=== PATIENT | female | born 1950 | race Caucasian/White ===

== ENCOUNTER 2016-10-06 12:31 | Inpatient (IN) | payer MEDICARE ==
[2016-09-29 10:06] LABS: BASOPHILS 0.5 %; BASOPHILS ABSOLUTE 0.02 10/3/uL (0.0-0.16); EOSINOPHILS 8.7 %; EOSINOPHILS ABSOLUTE 0.37 10/3/uL (0.0-0.53); HEMATOCRIT 41.7 % (36.0-48.0); HEMOGLOBIN 13.5 g/dL (12.0-16.0); IMMATURE GRANULOCYTES 0.2 %; IMMATURE GRANULOCYTES ABSOLUTE 0.01 10/3/uL (0.0-0.11); LYMPHOCYTES 40.2 %; LYMPHOCYTES ABSOLUTE 1.71 10/3/uL (0.67-4.30); MEAN CORPUS HGB CONC 32.4 g/dL (32.0-36.0); MEAN CORPUSCULAR HEMOGLOB 29.8 pg (26.0-34.0); MEAN CORPUSCULAR VOLUME 92.1 fL (80-100); MEAN PLATELET VOLUME 8.9 fL (9.2-13.0); MONOCYTES 8.9 %; MONOCYTES ABSOLUTE 0.38 10/3/uL (0.21-1.20); NEUTROPHILS 41.5 %; NEUTROPHILS ABSOLUTE 1.76 10/3/uL (2.02-8.40); PLATELET COUNT 295 10/3/uL (150-400); RED CELL COUNT 4.53 10/6/uL (4.0-5.6); WHITE BLOOD CELLS 4.3 10/3/uL (4.5-10.5)
[2016-09-29 10:08] LABS: MANUAL DIFF NO %
[2016-09-29 10:12] LABS: INTERNATIONAL NORMAL RATI 1.1 UNITS (-)
[2016-09-29 10:13] LABS: ASCORBIC ACID (UR NOT ORDER) NEG (NEG); BILIRUBIN, URINE NEGATIVE (NEG); KETONE, URINE NEGATIVE (NEG); LEUKOCYTE ESTERASE(NOT OR LARGE (NEG); PARTIAL THROMBO TIME 28.9 SEC (22.5-37.2); WBC (NOT ORDERED) (RFLEX) 12 (0-5)
[2016-09-29 10:26] LABS: A/G RATIO 1.3 (0.7-1.9); ALBUMIN 3.9 G/DL (3.5-5.0); ALKALINE PHOSPHATASE 82 U/L (45-117); BUN (BLOOD UREA NITROGEN) 19 MG/DL (6-23); CALCIUM, SERUM 9.3 MG/DL (8.5-10.4); CHLORIDE, SERUM 108 MMOL/L (96-112); CO2 (CARBON DIOXIDE) 28 MMOL/L (24-34); CREATININE 0.51 MG/DL (0.55-1.02); GFR AFRICAN AMERICAN 118 ML/MIN (>=60); GFR NON AFRICAN AMERICAN 102 ML/MIN (>=60); GLOBULIN 2.9 G/DL (2.5-4.1); GLUCOSE, SERUM 109 MG/DL (60-99); POTASSIUM, SERUM 3.7 MMOL/L (3.5-5.3); SGOT(AST) 22 U/L (5-40); SGPT(ALT) 31 U/L (5-65); SODIUM, SERUM 140 MMOL/L (135-148); TOTAL BILIRUBIN 0.6 MG/DL (0-1.2); TOTAL PROTEIN 6.8 G/DL (6.0-8.5)
--- NOTE | ~2016-10-06 | DS ---
Discharge Summary [facility] [address] [place]. [address] NAME: BABAK RILEY : 52 STATUS : DIS IN PAT#: [id number] AGE: 66 ADM/REG DATE : 10/06/16 MR#: [id number] REPORT SERV DATE: 10/21/16 DICTATED BY: SURY BUSCH DATE: 10/20/16 REPORT STATUS : Draft TRANSCRIBED BY: MODTressa DATE: 10/20/16 Data Collection from hospitalization DISCHARGE DIAGNOSES: 1. Left hip arthritis. 2. Hypertension. 3. Lymphedema. CONSULTATIONS: None. PROCEDURES PERFORMED: Left total hip arthroplasty, 10/06/2016. PATHOLOGY: Femoral head left hip joint replacement-marked changes of osteoarthritis. No evidence of infection or tumor. MEDICATIONS: Norvasc 5 mg at bedtime, Valium 2 mg four times a day as needed, Lasix 10 mg daily as needed, Cozaar 100 mg at bedtime, Roxicodone 5 mg to 10 mg every four hours as needed, Ultram 50 mg every six hours as needed, potassium as instructed, Tylenol 500 mg as needed, Coumadin 2.5 mg daily. CONDITION AT DISCHARGE: Stable. DISPOSITION: The patient was discharged to home on a regular diet with activities as instructed. She would follow up with me on 10/22/2016 and 11/18/2016. She would follow up at [facility] on [place], 10/13/2016 and for lab work at the [facility] on [place], 10/13/2016. HOSPITAL COURSE: This is a 65-year-old female who had complained of left hip pain that had increased since her last visit. She said she was unable to walk where she would like due to pain in her knee. She said she also had trouble with stairs and had to take them one at a time. She said that her pain was significantly affecting her activities of daily living. The patient has left hip arthritis. Treatment options were discussed and it was elected to proceed with surgical intervention. She was admitted to the hospital at this time for further evaluation and treatment. Upon admission, she was taken to the operating room where she underwent the above-mentioned procedure. She tolerated this well. There were no complications. On postop day #1, she was evaluated by Occupational and Physical Therapy. INR level was 1.1. She had good pain control. On postop day #2, she did have some left groin pain. Her pain medications were adjusted. Discharge planning was performed. On 10/09/2016, she was doing much better. She was up sitting in a bedside chair. She was wanting to go home. SUNNY hose were in place. Blood pressure was controlled. Discharge instructions were given. Due to her improved and stable condition, she was discharged to home with the above-stated instructions. Information collected by: Judith Melendez I submit the above information as my discharge summary. Discharge Summary [id number] [place]. [address] NAME: BABAK RILEY : 52 STATUS : DIS IN PAT#: [id number] AGE: 66 ADM/REG DATE : 10/06/16 MR#: [id number] REPORT SERV DATE: 10/21/16 DICTATED BY: SURY BUSCH DATE: 10/20/16 REPORT STATUS : Draft TRANSCRIBED BY: SPENCER DATE: 10/20/16 TG/SPENCER Sury Busch M.D. / [id number] CC: Mohit Alarcon M.D.
--- NOTE | ~2016-10-06 | OP ---
Record Of Operation [facility] [address] [place]. [address] NAME: BABAK RILEY : 52 STATUS : ADM IN PAT#: [id number] AGE: 65 ADM/REG DATE : 10/06/16 MR#: [id number] REPORT SERV DATE: 10/06/16 DICTATED BY: SURY BUSCH DATE: 10/06/16 REPORT STATUS : Draft TRANSCRIBED BY: MODL DATE: 10/06/16 DATE OF PROCEDURE: 10/06/2016 PREOPERATIVE DIAGNOSIS: Left hip arthritis. POSTOPERATIVE DIAGNOSIS: Left hip arthritis. PROCEDURE PERFORMED: Left total hip arthroplasty. SURGEON: Sury Busch M.D. ASSISTANTS: Channing Solitario and Brooklynn Ritter. ANESTHESIA: General with local infusion. PROCEDURE IN DETAIL: The patient is clearly identified and after obtaining informed consent is brought to the operating room at [facility] where here the patient is induced under general anesthesia and subsequently placed in the left lateral decubitus position. This concluded, the thigh and flank are prepped and draped in the usual manner. A time-out procedure successfully performed and after registering the knee and marking the anatomy through an approximately 4.5 incision, the skin is divided. The fascial planes are divided. The lateral fascia then is divided. Hemostasis is obtained with electrocautery and a Charnley retractor is applied. The piriformis is identified, tagged, divided, and retracted over the sciatic nerve felt deep in the wound. At which point, the mini approach to the hip is formed with dividing the capsule in a mini approach with a cuff of tissues remaining at the femoral side to accomplish repair at the conclusion of the case. Dislocating the hip, end-stage arthritic changes are noted. The tissue surrounding the femoral neck are protected with the Hohmann retractor and the femoral neck cut is made according to preoperative templating. This concluded, the femoral head is removed. The acetabulum is exposed. The labral and fluvial tissues are removed and reaming is performed. Subsequently trialing with the appropriate trial, the permanent acetabular components placed with the Maskell Sector. At which point, the acetabular trial component is then placed. The proximal femur is then addressed. The structures posteromedial to the greater trochanter are removed and this concluded the thelma-mariposa canal finder lateralizer and reaming is performed. This concluded, broaching is performed and with excellent fit-fill and stability for the implant trialing is performed finding excellent leg length, stability, no impingement, good kickback, no push-pull, and the lesser trochanter palpably at the appropriate distance from the ischium when compared to preoperative templating. The trials were felt to be appropriate. These are all then removed and the permanent implants are then carefully applied uneventfully. Copious irrigation is then performed with same stability and findings noted after insertion. At which point, the joint then is carefully closed in layers including capsule, piriformis, lateral fascia, deep tissues, and skin. Aquacel dressing is applied and the patient is then allowed to awaken, is placed supine and is returned to the recovery room in stable condition having tolerated the procedure well. ESTIMATED BLOOD LOSS: 150 mL. Record Of Operation [facility] [id number] [facility] [place]. [address] NAME: BABAK RILEY : 52 STATUS : ADM IN PAT#: [id number] AGE: 65 ADM/REG DATE : 10/06/16 MR#: [id number] REPORT SERV DATE: 10/06/16 DICTATED BY: SURY BUSCH DATE: 10/06/16 REPORT STATUS : Draft TRANSCRIBED BY: SPENCER DATE: 10/06/16 FLUIDS: 1000 mL. TOURNIQUET TIME: None. PATHOLOGY: Sent specimen. MICROBIOLOGY: None. COMPLICATIONS: None. SPONGE AND NEEDLE COUNTS: Reportedly correct. ANTIBIOTICS: Administered appropriately preoperatively and ordered to be discontinued within 23 hours. IMPLANTS: DePuy Hip System, femur [place], size 6 high offset, +1.5/36 metal head. Acetabulum, Maskell sector size 52 with a +4 neutral liner, and no screws. CIRO/SPENCER Sury Busch M.D. / [id number] CC: Sury Busch M.D.
[~2016-10-06 12:31] MED LIST: COZAAR100 MG PO; GOODY'S EX-STR1 EAC1 PO; L20 PO; NORV5 PO; POTASSIUM PO; TYLENOL PO; ULTRAM50 PO
[2016-10-07 05:06] LABS: HEMOGLOBIN 11.4 g/dL (12.0-16.0)
[2016-10-07 05:15] LABS: HEMATOCRIT 33.7 % (36.0-48.0)
[2016-10-07 05:19] LABS: INTERNATIONAL NORMAL RATI 1.1 UNITS (-); PROTIME (NOT ORD) 13.9 SEC (12.0-14.5)
[2016-10-07 05:22] LABS: BUN (BLOOD UREA NITROGEN) 15 MG/DL (6-23); CALCIUM, SERUM 8.8 MG/DL (8.5-10.4); CHLORIDE, SERUM 106 MMOL/L (96-112); CO2 (CARBON DIOXIDE) 24 MMOL/L (24-34); CREATININE 0.68 MG/DL (0.55-1.02); GFR AFRICAN AMERICAN 107 ML/MIN (>=60); GFR NON AFRICAN AMERICAN 92 ML/MIN (>=60); GLUCOSE, SERUM 146 MG/DL (60-99); POTASSIUM, SERUM 4.3 MMOL/L (3.5-5.3); SODIUM, SERUM 138 MMOL/L (135-148)
[2016-10-08 04:23] LABS: INTERNATIONAL NORMAL RATI 1.7 UNITS (-)
[2016-10-08 04:24] LABS: PROTIME (NOT ORD) 19.6 SEC (12.0-14.5)
[2016-10-08 04:33] LABS: HEMOGLOBIN 9.7 g/dL (12.0-16.0)
[2016-10-08 04:36] LABS: HEMATOCRIT 29.5 % (36.0-48.0)
[2016-10-09 03:58] LABS: HEMATOCRIT 26.9 % (36.0-48.0)
[2016-10-09 04:04] LABS: INTERNATIONAL NORMAL RATI 1.7 UNITS (-)
[2016-10-09] MEDS ORDERED: OXYCOD PO (12:13)
[2016-10-09] MEDS ORDERED: C5 PO (12:14)
[2016-10-09] MEDS ORDERED: V2 PO (12:14)
== END 2016-10-09 15:15 | disposition home or self-care (01) | DRG 470 ==
LOC: SDC/OF 12:31 → 3JRC 20:04
PROVIDERS: Orthopaedic Surgery
PROC: 0SRB02A Replacement of Left Hip Joint with Metal on Polyethylene Synthetic Substitute, Uncemented, Open Approach (ICD-10-PCS; principal; 2016-10-06 14:00)
DX: M16.12 Unilateral primary osteoarthritis, left hip (principal); I10 Essential (primary) hypertension; Z79.899 Other long term (current) drug therapy; Z88.1 Allergy status to other antibiotic agents
CPT/HCPCS: 36415; 71020; 72170; 80048; 80053; 81001; 85014; 85018; 85025; 85610; 85730; 86850; 86900; 86901; 87077; 87086; 87186; 87641; 88304; 88311; 93005; 97116-GP; 97150-GP; 97161-GP; 97165-GO; 97535-GO; A9270-GY; C1776; G8978-CK-GP; G8979-CI-GP; G8987-CK-GO; G8988-CJ-GO; J0690; J1170; J1885; J2250; J2270; J2370; J2405; J2710; J2795; J3010; J3370